=== PATIENT | male | born 1965 | race Caucasian/White ===

== ENCOUNTER 2016-07-26 07:21 | Inpatient (IN) | payer MEDICAID ==
--- NOTE | ~2016-07-26 | CT4 ---
[facility] A Service of [facility] & [facility] RADIOLOGY TEXT RESULTS PATIENT: REILLY LEMA LOCATION: [facility] 548-01 : 61 UNIT #: [id number] AGE: [address]: Ti Dean MD SEX: M ORDER DR: [id number] [facility] [address]. [place], [place] [address] [id number] MR#: [id number] Acc #: [id number] NAME: REILLY LEMA : 1965 SEX: M STUDY DATE/TIME: 07/26/2016 9:12 UNIT: DONNA ROOM: STUDY DESCRIPTION: CT Abd and Pelv Wo Cont Attending Physician: Mary Royal A.P.R.N. Ordering Physician: Ed Johnathan Clemons M.D. Primary Care Physician: No Primary Care Physician MEDICAL IMAGING REPORT This report is preliminary unless electronic signature is present EXAM CT abdomen and pelvis without contrast 07/26/2016. PROCEDURE Axial CT abdomen and pelvis without oral or IV contrast with multiplanar reformats. This CT exam was performed with one or more of the following radiation dose reduction techniques: automatic exposure control, adjustment of mA and/or kV according to patient size, and iterative reconstruction. CLINICAL HISTORY Generalized abdominal pain with nausea and vomiting for 5 days. History of kidney stones. FINDINGS The lung bases are normal. ABDOMEN: Unenhanced images of the liver and gallbladder and spleen and pancreas and adrenal glands are normal, and the aorta is normal in caliber. There is a tiny 2-mm nonobstructing right renal midpole stone and a 2-mm left renal lower pole nonobstructing stone. There is no hydronephrosis or ureterolithiasis on either side. There is no bowel obstruction. PELVIS: The appendix is normal. There is no pelvic mass or inflammatory change or abnormal fluid collection. There is no hernia or bowel obstruction or other acute abnormality. There are bilateral L5 pars defects with a grade 1 L5-S1 anterolisthesis, but no acute bony abnormality. IMPRESSION 1. There are 2-mm nonobstructing stones in both kidneys, but no hydronephrosis or ureterolithiasis on either side. 2. Normal appendix; no bowel obstruction or other acute abnormality. [facility]. [facility] A Service of [facility] & [facility] RADIOLOGY TEXT RESULTS PATIENT: REILLY LEMA LOCATION: [facility] 548-01 : 61 UNIT #: [id number] AGE: [address]: Ti Dean MD SEX: M ORDER DR: 3. Incidental note made of a grade 1 L5-S1 anterolisthesis with bilateral L5 pars defects. No acute bony abnormality. Dictated by... Frank Ferris M.D. THIS IS AN ELECTRONICALLY VERIFIED REPORT Frank Ferris M.D. at 07/29/2016 2:20 PM AJAY/clint TD: 07/26/2016 12:39 JOB #: [id number] MEDICAL IMAGING REPORT Page 1 of 1 COPY
--- NOTE | ~2016-07-26 | CR63 ---
[facility] A Service of [facility] RADIOLOGY TEXT RESULTS PATIENT: REILLY LEMA LOCATION: [facility] : [birth year] UNIT #: [id number] AGE: [address]: Ti Dean MD SEX: M ORDER DR: [id number] [facility] [address]. [place], [place] [address] [id number] MR#: [id number] #: [id number] NAME: REILLY LEMA : 1965 SEX: M STUDY DATE/TIME: 07/26/2016 11:43 UNIT: [facility] ROOM: 8 STUDY DESCRIPTION: CR Chest 2 View Attending Physician: Alisson Gregg M.D. Ordering Physician: Alisson Gregg M.D. Primary Care Physician: No Primary Care Physician MEDICAL IMAGING REPORT This report is preliminary unless electronic signature is present EXAM Chest 2 views 07/26/2016 1143 hours HISTORY 51-year-old man with 4-day history of shortness of air, nausea, and vomiting. History of kidney stones. COMPARISON None. FINDINGS Upright PA and lateral views of the chest demonstrate normal heart size with mildly tortuous aorta. Hilar contours are normal. The lungs demonstrate calcified granulomata. There is no acute pulmonary density or pleural effusion. No free air in the abdomen. IMPRESSION Benign calcified granulomatous changes are present. There are no acute cardiopulmonary findings. Dictated by... Samira Loaiza M.D. THIS IS AN ELECTRONICALLY VERIFIED REPORT Samira Loaiza M.D. at 07/27/2016 9:31 AM Rayne TD: 07/26/2016 16:28 JOB #: [id number] MEDICAL IMAGING REPORT [facility] A Service of [facility] RADIOLOGY TEXT RESULTS PATIENT: REILLY LEMA LOCATION: [facility] 548 : 61 UNIT #: [id number] AGE: [address]: Ti Dean MD SEX: M ORDER DR: Page 1 of 1 COPY
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
--- NOTE | ~2016-07-26 | US77 ---
[facility] A Service of [facility] & [facility] RADIOLOGY TEXT RESULTS PATIENT: REILLY LEMA LOCATION: [facility] 548-01 : 61 UNIT #: [id number] AGE: [address]: Ti Dean MD SEX: M ORDER DR: [id number] [facility] [address] [facility]. [place], [place] [address] [id number] MR#: [id number] Acc #: [id number] NAME: REILLY LEMA : 1965 SEX: M STUDY DATE/TIME: 07/26/2016 11:24 UNIT: [facility] ROOM: [facility] STUDY DESCRIPTION: US Kidney Bilateral Complete Attending Physician: Alisson Gregg M.D. Ordering Physician: Alisson Gregg M.D. Primary Care Physician: No Primary Care Physician MEDICAL IMAGING REPORT This report is preliminary unless electronic signature is present EXAM Renal ultrasound. INDICATIONS Acute kidney injury. BUN 48, creatinine 9.6, GFR 5.6. PROCEDURE Dong-scale and Doppler imaging of the kidneys and bladder. COMPARISON CT from 07/26/16. FINDINGS Unremarkable bladder. Right kidney measures 13.7 cm. Cortical thickness 1.6 cm. Left kidney measures 14.5 cm. Cortical thickness 1.6 cm. No hydronephrosis or focal renal lesion. IMPRESSION Negative renal ultrasound. No hydronephrosis. Dictated by... Randall Mason M.D. THIS IS AN ELECTRONICALLY VERIFIED REPORT Randall Mason M.D. at 07/27/2016 2:28 PM THANG/bert TD: 07/26/2016 18:05 JOB #: [id number] MEDICAL IMAGING REPORT Page 1 of 1 COPY
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
--- NOTE | ~2016-07-26 | DS ---
Unit #: [id number] #: [id number] Patient: REILLY LEMA [id number] [facility]. [place], [place] [address] [id number] MR#: [id number] NAME: REILLY LEMA ROOM: 548 Age: 51 Sex: M Admission Date: 07/26/2016 : 1965 Discharge Date: 07/29/2016 Attending Physician: Ti Dean M.D. Primary Care Physician: No Primary Care Physician DISCHARGE SUMMARY DIAGNOSIS ON ADMISSION Acute kidney injury. DIAGNOSES ON DISCHARGE 1. Acute kidney injury, likely secondary to acute tubular necrosis and Aleve, improving. 2. Hyponatremia, improved. 3. Alcohol abuse. 4. Renal stones. 5. Polysubstance abuse. 6. History of renal stones. CONSULTATION Dr. Stan Bautista in renal consultation. DIAGNOSTIC STUDIES LABORATORY: Patient's creatinine is 6.7 today. It was 9.6 on admission. Patient's sodium was 138, potassium 4.8. Patient's sodium on admission was 125, it is 135 now. WBC 4.5, hemoglobin 12.4, platelet count 154,000. Urinalysis revealed 1+ blood but no white blood cells. Hepatitis profile was nonreactive. HIV test was nonreactive. IMAGING: Bilateral renal ultrasounds were negative. Chest x-ray did not reveal any active cardiopulmonary findings. Patient had a CT scan of abdomen and pelvis done which revealed a 2 mm nonobstructing stones in both kidneys but no hydronephrosis or urolithiasis was seen. HOSPITAL COURSE A 51-year-old patient presented to [facility] with nausea, vomiting. Details are as per admission H and P. Acute kidney injury: Patient was admitted in the hospital, was seen by Dr. Bautista in consultation, and was treated with IV fluids. Patient responded well and creatinine is going down. Hyponatremia: It was multifactorial. Patient responded well to the treatment, and it is 135 now. Polysubstance abuse and alcohol abuse: The patient is advised to follow up with [facility]. Unit #: [id number] #: [id number] Patient: REILLY LEMA Tobacco abuse: The patient is encouraged to quit smoking. Patient is very adamant to go home since yesterday. He is threatening that he can sign out against medical advice. I called and discussed with Dr. Bautista who recommended that patient can be discharged home as his creatinine is improving but he absolutely needs to follow up with [facility] and get his labs done. Patient told me that he has an appointment at [facility], August 03, for lab work and also states that he has an appointment in one week with his primary care physician at [facility]. Therefore, the patient will follow up with them. He stated that he will have a renal doctor at [facility], but I told him if he is not able to find a renal doctor then he can call Dr. Bautista's office on outpatient basis. Today patient is comfortable, is not in acute distress. RECOMMENDATIONS ON DISCHARGE Condition is stable. Activity as tolerated. MEDICATIONS 1. Tylenol 650 mg p.o. q.6 hours p.r.n. 2. Folic acid 1 mg p.o. daily. 3. Thiamine 100 mg p.o. daily. 4. Multivitamin one tablet p.o. daily over the counter. FOLLOWUP The patient is advised to follow up with primary care physician at the [facility] in one week. The patient is also advised to have a BMP done as scheduled at [facility] on August 03, 2016. Patient is advised to call primary care physician or go to ER if patient's condition changes. The plan was discussed in detail with patient who showed complete understanding. The patient is also advised to follow up with [facility]. Dictated by... Kevin Wall/estephania TD: 07/29/2016 12:09 JOB #: [id number] CC: Stan Bautista Jr., M.D. [facility] DISCHARGE SUMMARY Page 1 of 1 X Ti Dean MD X DISCHARGE SUMMARY
[2016-07-26 07:52] LABS: URINE SOURCE CLEAN CATCH
[2016-07-26 08:11] LABS: URINE APPEARANCE CLEAR; URINE BILIRUBIN NEG (NEG); URINE BLOOD 2+ (NEG); URINE COLOR YELLOW; URINE GLUCOSE NEG (NEG); URINE KETONE NEG (NEG); URINE LEUKOCYTE ESTERASE NEG (NEG); URINE NITRATE NEG (NEG); URINE PH 7.5 (5-8); URINE PROTEIN 1+ (NEG); URINE SPECIFIC GRAVITY 1.005 (1.003-1.035); URINE UROBILINOGEN 0.2 MG/DL (NEG)
[2016-07-26 08:14] LABS: URINE BACTERIA AUWI NEG (NEGATIVE); URINE SQUAMOUS EPITHELIAL CELL NONE SEEN /[HPF]; UWBCS1 AUWI 0-2 (0-5)
[2016-07-26 08:27] LABS: BASOPHIL% 0.2 % (0-2.5); EOSINOPHIL# 0.1 X10e3 (0-0.7); EOSINOPHIL% 1.2 % (0.0-7.0); HEMATOCRIT 37.8 % (38.0-50.0); HEMOGLOBIN 13.4 gm/dL (13.0-16.0); LYMPHOCYTE# 0.6 X10e3 (1.0-3.5); LYMPHOCYTE% 9.3 % (17.0-45.0); MEAN CELL VOLUME 88.9 FL (83-96); MEAN CORPUSCULAR HEMOGLOBIN 31.5 PG (28-34); MEAN CORPUSCULAR HGB CONC 35.4 g/dL (30-36); MEAN PLATELET VOLUME 7.4 FL (6.5-11.5); MONOCYTE# 0.8 X10e3 (0-1.0); MONOCYTE% 13.5 % (3.0-12.0); NEUTROPHIL# 4.5 X10e3 (1.5-7.1); NEUTROPHIL% 75.8 % (40-75); PLATELET COUNT 159 X10e3 (140-420); RED BLOOD COUNT 4.25 X10e (3.90-5.60); RED CELL DISTRIBUTION WIDTH 12.8 % (11.0-15.5); WHITE BLOOD COUNT 5.9 X10e3 (4.0-10.5)
[2016-07-26 08:27] LABS: CULTURE INDICATED? NO
[2016-07-26 08:34] LABS: DIFF IND NO
[2016-07-26 09:01] LABS: ALBUMIN SERUM 3.3 g/dL (3.5-5.0); ALKALINE PHOSPHATASE 67 U/L (32-92); ALT (SGPT) 36 U/L (10-40); AST (SGOT) 48 U/L (10-42); BLOOD UREA NITROGEN 48 mg/dL (9-23); CALCIUM SERUM 7.7 mg/dL (8.4-10.2); CARBON DIOXIDE 31 mmol/L (22-31); CHLORIDE 79 mmol/L (100-111); CREATININE SERUM 9.6 mg/dL (0.6-1.4); GLOM FILT RATE Estimated 5.6 mL/min (>60); GLUCOSE FASTING 101 mg/dL (70-110); LIPASE 17 U/L (22-51); POTASSIUM 3.6 mmol/L (3.5-5.1); PROTEIN TOTAL SERUM 5.9 g/dL (6.0-8.3)
[2016-07-26 09:03] LABS: BILIRUBIN, DIRECT <0.1 mg/dL (0.0-0.2); BILIRUBIN,INDIRECT 0.9 mg/dL (0.0-0.9); SODIUM 125 mmol/L (135-145)
[2016-07-26 11:15] LABS: OSMOLALITY,SERUM 268 mOsmo/kg (280-300)
[2016-07-26 12:58] LABS: CPK (CREATINE PHOSPHOKINASE) 761 IU/L (36-174)
[2016-07-26 15:17] LABS: CREATININE,RANDOM URINE 43 mg/dL; SODIUM URINE RANDOM 45 mmol/L
[2016-07-26 15:32] LABS: AMPHETAMINE NEG (NEG); BARBITURATES NEG (NEG); BENZODIAZEPINES NEG (NEG); COCAINE NEG (NEG); MARIJUANA NEG (NEG); OPIATES NEG (NEG); TRICYCLIC ANTIDEPRESSANTS NEG (NEG); U METHADONE NEG (NEG)
[2016-07-26 16:42] LABS: CALCIUM SERUM 7.8 mg/dL (8.4-10.2); CREATININE SERUM 9.6 mg/dL (0.6-1.4); GLOM FILT RATE Estimated 5.6 mL/min (>60); POTASSIUM 3.5 mmol/L (3.5-5.1)
[2016-07-27 05:34] LABS: HEMATOCRIT 40.2 % (38.0-50.0); MEAN CELL VOLUME 89.8 FL (83-96); MEAN CORPUSCULAR HEMOGLOBIN 31.3 PG (28-34); MEAN CORPUSCULAR HGB CONC 34.9 g/dL (30-36); MEAN PLATELET VOLUME 7.6 FL (6.5-11.5); RED BLOOD COUNT 4.47 X10e (3.90-5.60); RED CELL DISTRIBUTION WIDTH 12.6 % (11.0-15.5); WHITE BLOOD COUNT 5.1 X10e3 (4.0-10.5)
[2016-07-27 05:52] LABS: PROTHROMBIN TIME (PATIENT) 10.9 SECONDS (9.6-11.5)
[2016-07-27 06:11] LABS: ALBUMIN SERUM 3.5 g/dL (3.5-5.0); BILIRUBIN,TOTAL 1.1 mg/dL (0.2-2.0); CALCIUM SERUM 7.7 mg/dL (8.4-10.2); CREATININE SERUM 9.2 mg/dL (0.6-1.4); GLOM FILT RATE Estimated 5.8 mL/min (>60); MAGNESIUM 1.8 mg/dL (1.6-3.0); POTASSIUM 3.2 mmol/L (3.5-5.1); PROTEIN TOTAL SERUM 6.1 g/dL (6.0-8.3)
[2016-07-27 14:35] LABS: BUN/CREATININE RATIO 5.27; CALCIUM SERUM 7.8 mg/dL (8.4-10.2); CREATININE SERUM 9.1 mg/dL (0.6-1.4); GLOM FILT RATE Estimated 5.9 mL/min (>60); POTASSIUM 3.7 mmol/L (3.5-5.1)
[2016-07-28 05:37] LABS: URINE APPEARANCE CLEAR; URINE BILIRUBIN NEG (NEG); URINE BLOOD 1+ (NEG); URINE COLOR YELLOW; URINE GLUCOSE NEG (NEG); URINE KETONE NEG (NEG); URINE LEUKOCYTE ESTERASE NEG (NEG); URINE NITRATE NEG (NEG); URINE PH 7.5 (5-8); URINE PROTEIN NEG (NEG); URINE SPECIFIC GRAVITY 1.005 (1.003-1.035); URINE UROBILINOGEN 0.2 MG/DL (NEG)
[2016-07-28 05:48] LABS: URBCS1 AUWI 0-2 /[HPF] (0-2); URINE BACTERIA AUWI NEG (NEGATIVE); URINE SQUAMOUS EPITHELIAL CELL NONE SEEN /[HPF]; UWBCS1 AUWI 0-2 (0-5)
[2016-07-28 06:43] LABS: HEMATOCRIT 35.7 % (38.0-50.0); HEMOGLOBIN 12.3 gm/dL (13.0-16.0); MEAN CELL VOLUME 91.7 FL (83-96); MEAN CORPUSCULAR HEMOGLOBIN 31.7 PG (28-34); MEAN CORPUSCULAR HGB CONC 34.6 g/dL (30-36); MEAN PLATELET VOLUME 7.9 FL (6.5-11.5); RED BLOOD COUNT 3.89 X10e (3.90-5.60); RED CELL DISTRIBUTION WIDTH 12.9 % (11.0-15.5); WHITE BLOOD COUNT 4.2 X10e3 (4.0-10.5)
[2016-07-28 07:11] LABS: BUN/CREATININE RATIO 5.8; CALCIUM SERUM 7.6 mg/dL (8.4-10.2); CREATININE SERUM 8.1 mg/dL (0.6-1.4); GLOM FILT RATE Estimated 6.8 mL/min (>60); MAGNESIUM 1.7 mg/dL (1.6-3.0); POTASSIUM 4.1 mmol/L (3.5-5.1)
[2016-07-28 07:27] LABS: HA AB IGM (HEPPAN) Nonreactive (()); HB CORE AB IGM (HEPPAN) Nonreactive (Nonreactive); HB S AG (HEPPAN) Nonreactive (Nonreactive); HEP C AB (HEPPAN) Nonreactive (Nonreactive); HEP C AB SIGNAL TO CUTOFF 0.03 ratio (<1.00)
[2016-07-28 20:33] LABS: CREATININE,RANDOM URINE 30 mg/dL; TOTAL PROTEIN,RANDOM URINE <10 mg/dl (<10)
[2016-07-29 05:30] LABS: HEMATOCRIT 36.6 % (38.0-50.0); HEMOGLOBIN 12.4 gm/dL (13.0-16.0); MEAN CELL VOLUME 92.9 FL (83-96); MEAN CORPUSCULAR HEMOGLOBIN 31.4 PG (28-34); MEAN CORPUSCULAR HGB CONC 33.8 g/dL (30-36); MEAN PLATELET VOLUME 7.7 FL (6.5-11.5); RED BLOOD COUNT 3.94 X10e (3.90-5.60); RED CELL DISTRIBUTION WIDTH 12.9 % (11.0-15.5); WHITE BLOOD COUNT 4.5 X10e3 (4.0-10.5)
[2016-07-29 06:02] LABS: BUN/CREATININE RATIO 6.26; CALCIUM SERUM 8.2 mg/dL (8.4-10.2); CREATININE SERUM 6.7 mg/dL (0.6-1.4); GLOM FILT RATE Estimated 8.6 mL/min (>60); POTASSIUM 4.8 mmol/L (3.5-5.1)
[2016-07-29] MEDS ORDERED: ACETAMINOPHEN PO (12:18)
[2016-07-29] MEDS ORDERED: MEGA MULTIVITA1 EACH PO (12:19)
[2016-07-29] MEDS ORDERED: FOLIC ACID1 MG PO (12:20)
[2016-07-29] MEDS ORDERED: THIAMINE HCL100 M1 PO (12:21)
[2016-07-29] MEDS ORDERED: [UNRECOGNIZED DRUG - OTHER] (12:23)
== END 2016-07-29 13:12 | disposition home or self-care (01) | DRG 683 ==
LOC: CED 07:21 → C5B 10:20 → CEDOF 10:20 → CED 10:42 → CEDOF 13:23 → C5B 13:23
PROVIDERS: Family Medicine; Internal Medicine; Internal Medicine Nephrology; Nurse Practitioner
DX: N17.0 Acute kidney failure with tubular necrosis (principal); E87.1 Hypo-osmolality and hyponatremia; F10.20 Alcohol dependence, uncomplicated; F19.10 Other psychoactive substance abuse, uncomplicated; F17.210 Nicotine dependence, cigarettes, uncomplicated; Z83.3 Family history of diabetes mellitus; Z87.442 Personal history of urinary calculi
CPT/HCPCS: 36415; 71020; 74176; 76770; 80048; 80053; 80074; 80076; 80307; 81003; 82550; 82570; 83690; 83735; 83930; 83935; 84156; 84300; 85025; 85027; 85610; 87806; 89190; 94760; 96361; 96374; 96375; 99285; J2405; J3411; J7042